=== PATIENT | female | born 1950 | race Hispanic/Latino ===

== ENCOUNTER 2019-02-07 18:36 | Emergency (ER) | payer MEDICARE, BC ==
--- NOTE | 2019-02-07 19:09 | Emergency Department Report ---
ED Dizziness HPI - General Chief Complaint: Dizziness Stated Complaint: LIGHTERD HEADED Time Seen by Provider: 02/07/19 18:57 Source: patient Mode of arrival: Stretcher Limitations: No Limitations - History of Present Illness Initial Comments: Patient is 68 years old female with history of hypertension. Patient brought to the emergency room for evaluation of dizziness and lightheadedness that happened just prior to coming to the emergency room. Patient stated that she went to the back first and then she went to [facility] and after she checked out she stated that she felt dizzy and lightheadedness. She stated that she sat down and thought that is because her blood sugar is low because he didn't eat breakfast. Patient stated that the store staff called the ambulance and brought her here. Patient currently denying any symptoms. She stated that she did not have any chest pain, weakness numbness or tingling sensation. Patient also denied any shortness of breath. MD Complaint: dizziness, lightheadedness -: This evening Timing: sudden onset Description: lightheadedness History of Same: No Severity: moderate Improves With: remaining still Worsens With: movement Associated Symptoms: denies other symptoms - Related Data Allergies Allergy/AdvReac Type Severity Reaction Status Date / Time latex Allergy Unknown Unknown Verified 06/14/13 08:59 codeine Allergy Unknown Verified 06/14/13 08:59 ED Review of Systems ROS: Stated complaint: LIGHTERD HEADED Other details as noted in HPI Comment: All other systems reviewed and negative Constitutional: denies: chills Respiratory: denies: cough, orthopnea, shortness of breath, SOB with exertion, SOB at rest, wheezing Cardiovascular: denies: chest pain, palpitations Neurological: vertigo ED Past Medical Hx - Past Medical History Hx Hypertension: Yes Hx GERD: Yes - Surgical History Past Surgical History?: No - Social History Smoking Status: Never Smoker Substance Use Type: Alcohol ED Physical Exam - General Limitations: No Limitations General appearance: alert, in no apparent distress - Head Head exam: Present: atraumatic, normocephalic, normal inspection - Eye Eye exam: Present: normal appearance, PERRL - ENT ENT exam: Present: normal exam, normal orophraynx, mucous membranes moist - Neck Neck exam: Present: normal inspection, full ROM. Absent: tenderness, meningismus, lymphadenopathy, thyromegaly - Respiratory Respiratory exam: Present: normal lung sounds bilaterally. Absent: respiratory distress, wheezes, rales, rhonchi, stridor, decreased breath sounds, prolonged expiratory - Cardiovascular Cardiovascular Exam: Present: regular rate, normal rhythm, normal heart sounds - GI/Abdominal GI/Abdominal exam: Present: soft, normal bowel sounds. Absent: distended, tenderness, guarding, rebound, rigid, organomegaly, mass, bruit, pulsatile mass, hernia - Extremities Exam Extremities exam: Present: normal inspection, full ROM, normal capillary refill - Back Exam Back exam: Present: normal inspection, full ROM. Absent: tenderness, CVA tenderness (R), CVA tenderness (L), muscle spasm, paraspinal tenderness, vertebral tenderness - Neurological Exam Neurological exam: Present: alert, oriented X3, CN II-XII intact, normal gait, reflexes normal - Skin Skin exam: Present: warm, intact, normal color ED Course Vital Signs 02/07/19 18:50 Temperature 98.2 F Pulse Rate 86 Respiratory 16 Rate Blood Pressure 177/86 O2 Sat by Pulse 96 Oximetry ED Medical Decision Making - Lab Data Result diagrams: 02/07/19 19:31 - Medical Decision Making Patient is 68 years old female with history of hypertension. Patient brought to the emergency room for evaluation of dizziness and lightheadedness that happened just prior to coming to the emergency room. Patient stated that she went to the back first and then she went to [facility] and after she checked out she stated that she felt dizzy and lightheadedness. She stated that she sat down and thought that is because her blood sugar is low because he didn't eat breakfast. Patient stated that the store staff called the ambulance and brought her here. Patient currently denying any symptoms. She stated that she did not have any chest pain, weakness numbness or tingling sensation. Patient also denied any shortness of breath. Patient and her refused taste and they stated that she is fine and they think this is just most likely due to low blood sugar. I explained to them thoroughly dizziness can be from brain issue or a heart issue or other heart issue and given her age we need to do further testing to make sure that she she has no serious illness. Patient is alert, oriented times city and able to make sound decision. After I explained to her and her the seriousness of signing AGAINST MEDICAL ADVICE patient still wanted to leave the ER. I recommended to to retained to the ER if she felt any new symptoms. They're also advised to follow-up with her primary care physician as soon as possible. Critical care attestation.: If time is entered above; I have spent that time in minutes in the direct care of this critically ill patient, excluding procedure time. ED Disposition Clinical Impression: Dizziness Disposition: DC-07 LEFT AGAINST MED ADVICE Is pt being admited?: No Condition: Stable Instructions: Dizziness (ED) Referrals: PRIMARY CARE, [Primary Care Provider] - 3-5 Days
[2019-02-07 19:43] LABS: Basophils % (Auto) 0.3 % (0.0-1.8); Eosinophils % (Auto) 0.3 % (0.0-4.3); Hemoglobin 15.3 gm/dl (10.1-14.3); Lymphocytes # (Auto) 1.4 K/mm3 (1.2-5.4); Lymphocytes % (Auto) 12.8 % (13.4-35.0); Mean Corpuscular HGB Conc 35 % (30-34); Mean Corpuscular Volume 90 fl (79-97); Monocytes # (Auto) 0.6 K/mm3 (0.0-0.8); Monocytes % (Auto) 5.1 % (0.0-7.3); Platelet Count 219 K/mm3 (140-440); Red Blood Count 4.88 M/mm3 (3.65-5.03); Red Cell Distribution Width 14.8 % (13.2-15.2)
[2019-02-07 19:56] LABS: INR 0.95 (0.87-1.13); Partial Thromboplastin Time 23.2 Sec. (24.2-36.6)
[2019-02-07 20:11] LABS: BUN/Creatinine Ratio 9; Blood Urea Nitrogen 14 mg/dL (7-17); Calcium 9.7 mg/dL (8.4-10.2); Hemolysis Index 3
[2019-02-07 20:18] VITALS: BP 144/100
== END 2019-02-07 20:31 | disposition left against medical advice (07) ==
LOC: ED 18:36
DX: R42 Dizziness and giddiness (principal); I10 Essential (primary) hypertension; K21.9 Gastro-esophageal reflux disease without esophagitis; Z88.6 Allergy status to analgesic agent; Z91.040 Latex allergy status
CPT/HCPCS: 36415; 80048; 84484; 85025; 85379; 85610; 85730; 99284